=== PATIENT | female | born 1970 | race Caucasian/White ===

== ENCOUNTER 2019-08-23 19:27 | Inpatient (IN) ==
[2019-08-23 20:56] LABS: BASO# 0.03 X1000 (0.0-0.2); BASO% 0.1 % (0.0-0.8); EOS# 0.02 X1000 (0.0-0.7); EOS% 0.1 % (0.0-10.0); HEMOGLOBIN 12.4 g/dL (12.0-16.0); IMM GRAN# 0.07 X1000 (0.0-0.04); IMM GRAN% 0.3 % (0.0-0.5); LYMPH# 1.58 X1000 (1.2-3.4); LYMPH% 7.4 % (20.5-51.1); MCH 29.3 PG (27-31); MCHC 31.8 g/dL (33-37); MCV 92.2 FL (81-99); MONO# 2.26 X1000 (0.11-0.59); MONO% 10.6 % (1.7-9.3); MPV 9.8 FL (7.4-10.4); NEUT# 17.27 X1000 (1.4-6.5); NEUT% 81.5 % (42.2-75.2); PLT 334 X1000 (130-400); RBC 4.23 XMIL (4.2-5.4); RDW 13.3 % (11.5-14.5); WBC 21.23 X1000 (4.8-10.8)
--- NOTE | 2019-08-23 21:06 | PROVIDER DOCUMENTATION ---
HPI-Abdominal Pain/GI Problem - General Chief Complaint: Abdominal Pain Stated Complaint: FEVER/PAIN IN RIGHT SIDE Time Seen by Provider: 08/23/19 20:05 Allergies/Adverse Reactions: Patient Allergies Allergy/AdvReac Type Severity Reaction Status Date / Time No Known Allergies Allergy Verified 08/23/19 20:23 Home Medications: Home Medication List Medication Instructions Recorded Confirmed Last Taken Type NK [No Home Medications] 08/23/19 08/23/19 Unknown History - History of Present Illness-ABD Nature of Presenting Problems: Patient with no know medical problem c/o acute non traumatic RUQ abdominal pain of 2 days duration with associated chills. Reports mild nausea without vomiting. Denies nausea without vomiting, diarrhea, constipation. No CYRUS symptoms Abdominal Pain Onset Location: reports: RUQ Pain Radiation: reports: no radiation Quality of Pain: reports: throbbing Severity in ED: reports: moderate Onset/Duration: reports: 2 days ago Timing: reports: still present Activities at Onset: reports: none Exposure to sick contacts?: Yes Modifying Factors: improves with: nothing Associated Symptoms: reports: fever/chills, nausea Rectal Bleeding: reports: none Rectal Pain: reports: none Bruising or Bleeding Gums?: No Similar Symptoms Previously?: No Recently seen or treated by another doctor?: No Review of Systems - Adult - REVIEW OF SYSTEMS - ADULT Constitutional: reports: no symptoms reported Eyes: reports: no symptoms reported Ears, Nose, Mouth & Throat: reports: no symptoms reported Cardiovascular: reports: no symptoms reported Respiratory: reports: no symptoms reported Gastrointestinal: reports: see HPI Genitourinary: reports: no symptoms reported Musculoskeletal: reports: no symptoms reported Integumentary: reports: no symptoms reported Neurological: reports: no symptoms reported Psychiatric: reports: no symptoms reported Endocrine: reports: no symptoms reported Hematologic/Lymphatic: reports: no symptoms reported Allergic/Immunologic: reports: no symptoms reported Past History - Adult - PAST MEDICAL HISTORY-ADULT Review of Records: reports: Nursing Assessment Review, Medications Reviewed, S ocial history reviewed & non-contributory. Cardiovascular: reports: denies history Respiratory: reports: denies history Gastrointestinal: reports: denies history Obstetrical/Gynecological: reports: endometriosis Genitourinary: reports: denies history Musculoskeletal: reports: denies history Neurological: reports: denies history Psychiatric: reports: denies history Endocrine/Immune: reports: denies history - PRIOR SURGERIES/PROCEDURES Surgical/Procedure History: reports: hysterectomy, tonsillectomy - IMMUNIZATION STATUS Childhood Immunizations: See Nurse Assessment Flu Vaccine: See Nurse Assessment - SOCIAL HISTORY Smoking: denies Substance Use: none/never Alcohol Use Frequency: never Living Situation: friend (fiance) Physical Exam-General - PHYSICAL EXAM-ADULT Initial Vital Signs Reviewed: Yes - CONSTITUTIONAL General Appearance: mild distress - EYES Eyes: PERRL/EOMI - HEAD, EARS, NOSE, MOUTH & THROAT HENMT: normocephalic/atraumatic - NECK Neck: non-tender, full range of motion - RESPIRATORY Respiratory: chest non-tender, lungs clear - CARDIOVASCULAR Cardiovascular: regular rate, rhythm - GASTROINTESTINAL (ABDOMEN) Abdominal Exam: tenderness (right upper quadrant) - MUSCULOSKELETAL Back Exam: normal inspection Extremity: normal range of motion - SKIN Integumentary: normal color - NEUROLOGIC Neurologic: band saw marker II-XII nml as tested - PSYCHIATRIC Psych/Mental Status: oriented x 3 Progress - PLAN OF CARE/RESULTS Progress/Plan/Lab Results: Vital Signs - 8 hr 08/23/19 19:29 08/23/19 19:49 08/23/19 19:50 Temperature 98.9 F 97.9 F Pulse Rate 108 H Respiratory Rate 16 Blood Pressure 117/79 106/70 O2 Sat by Pulse Oximetry 98 97 99 08/23/19 20:00 08/23/19 20:15 Temperature Pulse Rate Respiratory Rate Blood Pressure O2 Sat by Pulse Oximetry 96 98 Laboratory Results - last 24 hr 08/23/19 20:43 WBC 21.23 H RBC 4.23 Hgb 12.4 Hct 39.0 MCV 92.2 MCH 29.3 MCHC 31.8 L RDW Std Deviation 13.3 Plt Count 334 MPV 9.8 Immature Gran % (Auto) 0.3 Neut % (Auto) 81.5 H Lymph % (Auto) 7.4 L [place] % (Auto) 10.6 H Eos % (Auto) 0.1 Baso % (Auto) 0.1 Immature Gran # (Auto) 0.07 H Neut # (Auto) 17.27 H Lymph # (Auto) 1.58 [place] # (Auto) 2.26 H Eos # (Auto) 0.02 Baso # (Auto) 0.03 Orders Category Date Time Status Saline Loc DIRECTED Care 08/23/19 20:22 Active NPO Diet 08/23/19 20:22 Active US ABDOMEN-COMPLETE [US] Stat Exams 08/23/19 20:22 Ordered AMYLASE [CHEM] Stat Lab 08/23/19 20:43 Received CBC WITH ELECTRONIC DIFF [HEME] Stat Lab 08/23/19 20:43 Results COMPREHENSIVE METABOLIC PANEL [CHEM] Stat Lab 08/23/19 20:43 Received LIPASE [CHEM] Stat Lab 08/23/19 20:43 Received Result Diagrams: 08/23/19 20:43 08/23/19 20:43 - ULTRASOUND (By Radiology) 1 US Study: Abdomen ( EXAM: US ABDOMEN-COMPLETE INDICATION: right upper quadrant pain COMPARISON: None. FINDINGS: There is a nonshadowing echogenic focus abutting the gallbladder wall measuring up to 8.3 mm. This probably represents an echogenic bulge sludge. A gallbladder polyp is also possible. No shadowing stones or gallbladder wall thickening is identified. The common bile duct is normal in diameter. Sonographic Sparks's sign was reported to be positive by the finisher wallboard and plasterboard. The liver is grossly unremarkable. Portal venous flow is hepatopetal. The pancreas is largely obscured. The visualized portion is unremarkable. The aorta and IVC are grossly unremarkable. The spleen is unremarkable. There is a 7 mm echogenic focus associated with the right renal cortex that probably represents a small calcification. The kidneys are unremarkable, otherwise. IMPRESSION: 8.3 mm ball of sludge or possibly a gallbladder polyp with no wall thickening or pericholecystic fluid but a reported positive sonographic Sparks sign. Please correlate clinically. Follow- up ultrasound is recommended to assure stability in case this is a polyp. Electronically signed by John Whitman 08/23/2019 9:30 PM) - CONSULTS/PCP/HOSPITALIST Notification #1 *Consult/PCP/Hospitalist*: surgeon Dr King Time Discussed: 09:55 (he wants hospitalist to admit pt and he will follow up with pt tomorrow) #2 Consult: Dr. Burton Time Discussed: 10:20 (Dr Burton will be admitting patient) Consult Disposition: Admit Departure - Departure Date of Disposition Decision: 08/23/19 Time of Disposition Decision: 22:36 DIAGNOSIS: Cholecystitis Disposition: ADMITTED INPATIENT 09 Certified Medical Emergency: Emergent Condition: Fair Referrals and Follow-Ups: None,PCP [Primary Care Provider] - - Critical Care Note This patient required my direct & personal management of CC.: No Attestation - Physician/ LAKESHIA Attestation Patient care was provided by Advanced Practice Provider:: No The physician spent face to face time with patient:: Yes Advanced Practice Provider documentation review:: Supervising physician onsite and consulted in the evaluation and care of this patient. The physician did have a face to face encounter with the patient.
[2019-08-23 21:14] LABS: AGAP 10; ALB/GLOB RATIO 1.1; ALBUMIN 3.9 g/dL (3.5-5.0); ALKALINE PHOSPHATASE 157 U/L (32-104); AMYLASE 23 U/L (20-200); BUN 17 mg/dL (8-22); CALCIUM 8.6 mg/dL (8.8-10.2); CHLORIDE 94 mmol/L (98-107); COSMO 261; CREATININE 0.9 mg/dL (0.5-0.9); ESTIMATED GFR > 60; GLUCOSE 105 mg/dL (70-104); GOT 65 U/L (10-30); GPT 88 U/L (10-36); LIPASE 13 U/L (13-60); POTASSIUM 3.2 mmol/L (3.5-5.1); SODIUM 129 mmol/L (136-145); TCO2 25 mmol/L (25-35); TOTAL BILIRUBIN 1.27 mg/dL (0.20-1.00); TOTAL PROTEIN 7.6 g/dL (6.3-8.3)
[2019-08-23 21:26] LABS: LYMPHS 10 % (21-51); MONO 7 % (1-9); SEGS 83 % (42-75)
--- NOTE | 2019-08-23 21:32 | Diag Imaging Result Doc PS360 ---
EXAM: US ABDOMEN-COMPLETE INDICATION: right upper quadrant pain COMPARISON: None. FINDINGS: There is a nonshadowing echogenic focus abutting the gallbladder wall measuring up to 8.3 mm. This probably represents an echogenic bulge sludge. A gallbladder polyp is also possible. No shadowing stones or gallbladder wall thickening is identified. The common bile duct is normal in diameter. Sonographic Sparks's sign was reported to be positive by the lathe sander. The liver is grossly unremarkable. Portal venous flow is hepatopetal. The pancreas is largely obscured. The visualized portion is unremarkable. The aorta and IVC are grossly unremarkable. The spleen is unremarkable. There is a 7 mm echogenic focus associated with the right renal cortex that probably represents a small calcification. The kidneys are unremarkable, otherwise. IMPRESSION: 8.3 mm ball of sludge or possibly a gallbladder polyp with no wall thickening or pericholecystic fluid but a reported positive sonographic Sparks sign. Please correlate clinically. Follow-up ultrasound is recommended to assure stability in case this is a polyp. Electronically signed by John Whitman 08/23/2019 9:30 PM
[2019-08-23] MEDS ORDERED: NS 1,000 ML IV ONE (21:44)
[2019-08-23] MEDS ORDERED: ROCEPHIN 1 GM in NS 50 ML IV ONE (21:44)
[2019-08-23] MEDS ORDERED: ZOFRAN IV ONE (21:49)
[2019-08-23] MEDS ORDERED: MORPHINE IV ONE (21:49)
[2019-08-23] MEDS ORDERED: TYLENOL PO PRN (23:46)
[2019-08-24] MEDS ORDERED: ZOFRAN IV PRN (00:24)
[2019-08-24] MEDS ORDERED: KLOR-CON PO ONE (00:24)
[2019-08-24] MEDS ORDERED: MORPHINE IV PRN (00:24)
[2019-08-24] MEDS: NS 1,000 ML IV SCH ×5 (00:44→23:19)
[2019-08-24] MEDS: ZOSYN 3.375 GM in NS 50 ML IV SCH ×4 (00:45→19:59)
[2019-08-24 02:02] LABS: URINE SOURCE CLEAN CATCH
[2019-08-24 02:05] LABS: BILIRUBIN URINE NEGATIVE (NEGATIVE); BLOOD URINE MODERATE (NEGATIVE); COLOR YELLOW; GLUCOSE URINE NEGATIVE (NEGATIVE); KETONE URINE NEGATIVE (NEGATIVE); LEUKOCYTES URINE MODERATE (NEGATIVE); NITRITE URINE NEGATIVE (NEGATIVE); PROTEIN URINE 100 mg/dL (NEGATIVE); TURBIDITY URINE CLEAR (CLEAR); UROBILINOGEN URINE 8 mg/dL (NORMAL)
[2019-08-24 02:06] LABS: UR EPITHELIAL CELLS <10 /HPF (<10); URINE BACTERIA 1+ /HPF; URINE RBC 20-40 /HPF (<10); URINE WBC TNTC /HPF (<10)
[2019-08-24 02:15] LABS: SP GRAVITY URINE 1.015
--- NOTE | 2019-08-24 04:15 | HISTORY AND PHYSICAL ---
PRIMARY CARE PHYSICIAN: None. CHIEF COMPLAINT: Abdominal pain and right flank pain x3 days. HISTORY OF PRESENTING ILLNESS: A 49-year-old female with a history of hypothyroidism that presented to the emergency department with 3 days history of having abdominal pain mostly in her right upper quadrant and right flank region. She states that she was having fevers and chills, and not feeling well and subsequently had come to emergency department. In the ED she was evaluated. She had a CT scan done which did show bilateral pyelonephritis more pronounced on the right. The patient also had an abdominal ultrasound which did show gallbladder sludge. Due to her presenting symptoms, she will require admission for further management. At the time of my examination, patient denied any headache, chest pain, shortness of breath, hemoptysis or any weight changes, but complained of abdominal pain and fever. PAST MEDICAL HISTORY: Includes hypothyroidism. PAST SURGICAL HISTORY: Hysterectomy, tonsillectomy. ALLERGIES: No known drug allergies. CURRENT MEDICATIONS: None. SOCIAL HISTORY: No history of smoking, alcohol or illicit drug use. FAMILY HISTORY: No history of coronary artery disease. REVIEW OF SYSTEMS: Fourteen point review of system as listed in HPI. Other systems negative. PHYSICAL EXAMINATION: GENERAL: Cooperative, friendly female. She is resting more comfortably now. VITAL SIGNS: Temperature 98.9 degrees, pulse 108, respirations 16, blood pressure 117/79. HEENT: Atraumatic, normocephalic. Extraocular movements intact. PERRLA. NECK: No masses. CHEST: Clear to auscultation. CARDIOVASCULAR: Regular rate and rhythm. ABDOMEN: There is some right upper quadrant tenderness. BACK: There is flank tenderness. GENITOURINARY: No bladder distention. SKIN: Warm. NEUROLOGIC: Nonfocal. LABORATORIES AND STUDIES: WBC is 21.23, hemoglobin 12.4, hematocrit 39.0, platelets 334,000. Sodium 129, potassium 3.2, chloride 94, CO2 is 25, BUN is 17, creatinine 0.9, glucose 105. Abdominal ultrasound shows 8.3 mm ball of sludge or possibly a gallbladder polyp with no wall thickening or pericholecystic fluid. CT scan shows bilateral pyelonephritis. ASSESSMENT: A 49-year-old female with a history of hypothyroidism had presented to the emergency department with 3 days history of having right flank/abdominal pain. She was also complaining of fever. She was evaluated in the emergency department. She had imaging done which did show bilateral pyelonephritis more pronounced on the right. Subsequently, she will require admission for further management. 1. Bilateral pyelonephritis, more pronounced on the right. 2. Gallbladder sludge. 3. Hypothyroidism. PLAN: 1. We will admit patient to medical floor with telemetry. 2. We will continue with IV fluids, antiemetics, adequate pain control. 3. We will check blood cultures. Start patient on IV antibiotics. 4. We will put patient on DVT prophylaxis with SCD. 5. We will continue to follow, and reassess and make further recommendation based on patient's clinical course. cc: Gerson Burton MD
--- NOTE | 2019-08-24 06:34 | Diag Imaging Result Doc PS360 ---
CT ABD/PELVIS W/IV CONT ONLY - 08/23/2019 INDICATION: abdominal pain COMPARISON: Abdomen ultrasound earlier 08/23/2019 FINDINGS: The lung bases are clear and the heart size is normal. There is patchy hypoenhancement of both kidneys compatible with pyelonephritis. No radiodense renal stones. No hydronephrosis. There is a tiny stone in the gallbladder. No gallbladder distention or inflammation. Otherwise all abdominal organs are normal. No bowel obstruction or inflammation. Uterus is absent. Urinary bladder and rectum are normal. Bones are intact and normally mineralized. IMPRESSION: 1. Bilateral pyelonephritis. 2. Tiny gallstone in the gallbladder. This exam was performed using automated exposure control, adjustment of mA or kV according to patient size, and/or use of iterative reconstruction technique Electronically signed by Galen Rosa 08/24/2019 6:31 AM
[2019-08-24 07:58] LABS: BASO# 0.02 X1000 (0.0-0.2); BASO% 0.1 % (0.0-0.8); HEMATOCRIT 36.6 % (37.0-47.0); HEMOGLOBIN 11.5 g/dL (12.0-16.0); IMM GRAN# 0.19 X1000 (0.0-0.04); IMM GRAN% 0.6 % (0.0-0.5); LYMPH# 1.25 X1000 (1.2-3.4); LYMPH% 3.7 % (20.5-51.1); MCH 29.7 PG (27-31); MCHC 31.4 g/dL (33-37); MCV 94.6 FL (81-99); MONO# 3.21 X1000 (0.11-0.59); MONO% 9.4 % (1.7-9.3); MPV 10.1 FL (7.4-10.4); NEUT# 29.56 X1000 (1.4-6.5); NEUT% 86.2 % (42.2-75.2); PLT 273 X1000 (130-400); RBC 3.87 XMIL (4.2-5.4); RDW 13.3 % (11.5-14.5); WBC 34.23 X1000 (4.8-10.8)
[2019-08-24 08:08] LABS: AGAP 10; BUN 12 mg/dL (8-22); CALCIUM 8.6 mg/dL (8.8-10.2); CHLORIDE 102 mmol/L (98-107); COSMO 268; CREATININE 0.8 mg/dL (0.5-0.9); ESTIMATED GFR > 60; GLUCOSE 141 mg/dL (70-104); SODIUM 133 mmol/L (136-145); TCO2 21 mmol/L (25-35)
[2019-08-24 08:13] LABS: BANDS 2 % (0-1); LYMPHS 4 % (21-51); MONO 8 % (1-9); SEGS 86 % (42-75)
[2019-08-24] MEDS: TYLENOL PO PRN ×2 (08:21→20:00)
[2019-08-24] MEDS: MIRALAX PO SCH ×2 (09:32→20:00)
[2019-08-24] MEDS ORDERED: SYNTHROID PO ONE (13:39)
[2019-08-24] MEDS ORDERED: VANCOMYCIN IV PER PHARMACY MISC SCH (14:15)
[2019-08-24] MEDS ORDERED: NS 1,000 ML IV ONE (14:23)
[2019-08-24] MEDS ORDERED: VANCOMYCIN 2 GM in NS 500 ML IV ONE (15:00)
--- NOTE | 2019-08-24 15:40 | EKG Report ---
Test Performed on : 08/24/2019 2:08:55 PM Test Reason : Hypotension Blood Pressure : / mmHG Vent. Rate : 078 BPM Atrial Rate : 078 BPM P-R Int : 148 ms QRS Dur : 084 ms QT Int : 376 ms P-R-T Axes : 067 038 056 degrees QTc Int : 428 ms Normal sinus rhythm. Nonspecific T wave abnormality Abnormal ECG No previous ECGs available Confirmed by Ashley CALDERON, Tobi Ordonez ([id number]) on 08/25/2019 11:07:24 PM
[2019-08-24 15:50] LABS: INR 1.38; PROTIME 17.2 Seconds (11.0-16.0)
--- NOTE | 2019-08-24 15:59 | PROGRESS NOTE ---
DATE: 08/24/2019 INTERVAL HISTORY: Ms. Diaz was admitted for suspected sepsis due to bilateral predominantly right-sided pyelonephritis. S she has not had her blood pressure and lactate and she is hypotensive for which I ordered stat blood tests, EKG, and stat boluses, stat intravenous bolus. Ms. Diaz states previously she did have a history of nephrolithiasis, which did not require surgical intervention. She denies any burning, pain, or burning micturition or pyuria. She denies any increased frequency of urination. She denies known history of gallbladder disease, though her ultrasound did detect suspected gallstones without any edema. SUBJECTIVE: She states she is feeling the same as she was yesterday. We discussed about adding increasing antibiotic coverage. We discussed about getting stat blood pressure, stat vitals, and stat labs and possibly transferring her to PVC or ICU based on her course after that. VITAL SIGNS: Currently, temperature of 98 degrees, pulse 78, respirations 16. Blood pressure is 80/50, repeat blood pressure was 90/60. She is saturating 100% on room air. PHYSICAL EXAMINATION: General: Not in any acute distress. HEENT: Oral cavity is dry. Lungs: Air entry bilaterally equal. No wheeze, rhonchi, or crackles. Cardiovascular: S1, S2 normal. No murmur or gallop. Abdomen: Soft. There is a significant tenderness with positive Sparks signs on right upper quadrant. She also has significant tenderness of the right flank region. There are active bowel sounds. Urine catheter has not been placed yet. LABORATORY DATA: In the morning time, her CBC increased to 34,000, hemoglobin of 11.5, platelet of 273,000. Her hyponatremia and hypokalemia have resolved. She does have abnormal kidney function. She did have transaminitis. On urinalysis, she had pyuria and hematuria. Microbiology, urine culture is pending. Blood culture has not been collected. ASSESSMENT AND PLAN: 1. Sepsis and possibly septic shock due to right-sided pyelonephritis, though ultrasound of gallbladder did not have pericholecystic fluid. Acute cholecystitis disease is not totally ruled out yet. I will give her intravenous normal saline bolus. Continue her on intravenous fluids. I will add intravenous vancomycin to her current regimen of intravenous Zosyn. Get stat blood cultures, lactate, and insert urine catheter for close input and output monitoring. Based on next set of vitals, my plan is to transfer her to either PVC or ICU. I will give her intravenous morphine as needed for pain, and I will consult General Surgery team for evaluation of her gallbladder. I will also initiate workup for coagulopathy just in case if she needs urgent surgical intervention. Plan of care extensively discussed with the patient and her at bedside. All of their questions have been satisfactorily answered. 2. Cholecystolithiasis without cholecystitis: I will keep surgery team on board. cc: Elier Kearns MD MTDD
[2019-08-24 16:03] LABS: BASO# 0.02 X1000 (0.0-0.2); BASO% 0.1 % (0.0-0.8); EOS# 0.04 X1000 (0.0-0.7); EOS% 0.2 % (0.0-10.0); HEMATOCRIT 32.9 % (37.0-47.0); HEMOGLOBIN 10.2 g/dL (12.0-16.0); IMM GRAN# 0.06 X1000 (0.0-0.04); IMM GRAN% 0.2 % (0.0-0.5); MCH 29.5 PG (27-31); MCV 95.1 FL (81-99); MONO# 1.72 X1000 (0.11-0.59); MONO% 6.8 % (1.7-9.3); MPV 10.2 FL (7.4-10.4); NEUT# 21.81 X1000 (1.4-6.5); NEUT% 86.7 % (42.2-75.2); PLT 262 X1000 (130-400); RBC 3.46 XMIL (4.2-5.4); RDW 13.4 % (11.5-14.5); WBC 25.15 X1000 (4.8-10.8)
[2019-08-24 16:11] LABS: AGAP 13; ALB/GLOB RATIO 0.8; ALBUMIN 2.9 g/dL (3.5-5.0); ALKALINE PHOSPHATASE 147 U/L (32-104); BUN 13 mg/dL (8-22); CALCIUM 8.5 mg/dL (8.8-10.2); CHLORIDE 99 mmol/L (98-107); COSMO 275; CREATININE 0.9 mg/dL (0.5-0.9); ESTIMATED GFR > 60; GLUCOSE 143 mg/dL (70-104); GOT 35 U/L (10-30); GPT 55 U/L (10-36); POTASSIUM 3.9 mmol/L (3.5-5.1); SODIUM 136 mmol/L (136-145); TCO2 24 mmol/L (25-35); TOTAL BILIRUBIN 1.18 mg/dL (0.20-1.00); TOTAL PROTEIN 6.4 g/dL (6.3-8.3)
[2019-08-24 16:19] LABS: BANDS 1 % (0-1); LYMPHS 4 % (21-51); MONO 1 % (1-9); SEGS 94 % (42-75)
[2019-08-24] MEDS: OXY IR PO PRN (17:25)
--- NOTE | 2019-08-24 19:41 | GENERAL SURGERY CONSULTATION ---
DATE: 08/24/2019 REASON FOR CONSULTATION: Gallstones. CHIEF COMPLAINT: Right flank pain for 3 days. HISTORY OF PRESENT ILLNESS: This is a 49-year-old female, who has a history of hypothyroidism. She came to the emergency department after right flank pain for several days. It is located in the right flank, radiating into the right upper quadrant. She says that approximately 1 to 2 weeks ago she had some dysuria type symptoms, thought she had a UTI, but this resolved without any further intervention. She does have a history of nephrolithiasis. Imaging workup showed that she had pyelonephritis after she was found to have leukocytosis and was febrile in the emergency department. She also had incidentally noted gallstones. No jaundice. She has had some nausea this admission, but she has had no episodic symptoms with eating prior to this. She had a CT scan that showed bilateral pyelonephritis, and she also had both CT and ultrasound that showed gallstones versus sludge versus polyp, but no pericholecystic fluid. MEDICAL HISTORY: Hypothyroidism. SURGICAL HISTORY: She has had a laparoscopic hysterectomy, tonsillectomy. MEDICATIONS: None. SOCIAL HISTORY: No tobacco, alcohol, drugs. FAMILY HISTORY: Reviewed and noncontributory. REVIEW OF SYSTEMS: A 10 point review of systems was negative other than what is mentioned in HPI. PHYSICAL EXAMINATION: She is afebrile currently, but was febrile in the emergency department up to 101.7, pulse 85, blood pressure 110/61, oxygen saturation 100%.General: She is alert, in no acute distress. HEENT: There is no scleral icterus. Neck: No cervical mass. Cardiovascular: Normal rate. Pulmonary: No increased work of breathing. Abdomen: She is tender over her right flank, worse in the costovertebral angle, but no peritonitis. Psychiatric: Appropriate affect. Neurologic: No gross deficits. Peripheral vascular: No lower extremity edema. Lymphatic: No cervical or axillary adenopathy. DIAGNOSTIC STUDIES: White count is up to 25 and it was 21 on admission, hematocrit 32, platelets 262,000. INR is 1.38. Creatinine 0.9, bilirubin is 1.18. AST, ALT, and alkaline phosphatase are mildly elevated. Her lactate was 2.8. Lipase was normal. I reviewed her imaging. Urinalysis also showed moderate leukocytes and blood in the urine. ASSESSMENT AND PLAN: This is a 49-year-old female with pyelonephritis. She also has incidentally noted gallstones, some mild elevation in LFTs, possibly related to her systemic illness. Her history is not consistent with biliary etiology. I would recommend treating of her pyelonephritis and observation over the next couple days, as I suspect that clinically this is more of a pyelonephritis-type picture. Ding catheter is being placed currently. We will follow along and monitor her gallbladder going forward. cc: Neal Galvan MD
[2019-08-25] MEDS: ZOSYN 3.375 GM in NS 50 ML IV SCH ×4 (03:12→20:03)
[2019-08-25 06:37] LABS: BASO# 0.03 X1000 (0.0-0.2); BASO% 0.1 % (0.0-0.8); EOS# 0.15 X1000 (0.0-0.7); EOS% 0.7 % (0.0-10.0); HEMATOCRIT 33.9 % (37.0-47.0); HEMOGLOBIN 10.5 g/dL (12.0-16.0); IMM GRAN# 0.07 X1000 (0.0-0.04); IMM GRAN% 0.3 % (0.0-0.5); LYMPH# 2.42 X1000 (1.2-3.4); LYMPH% 11.4 % (20.5-51.1); MCH 29.5 PG (27-31); MCV 95.2 FL (81-99); MONO# 2.32 X1000 (0.11-0.59); MONO% 10.9 % (1.7-9.3); MPV 10.4 FL (7.4-10.4); NEUT# 16.21 X1000 (1.4-6.5); NEUT% 76.6 % (42.2-75.2); PLT 255 X1000 (130-400); RBC 3.56 XMIL (4.2-5.4); RDW 13.5 % (11.5-14.5)
[2019-08-25 06:42] LABS: AGAP 11; ALB/GLOB RATIO 0.7; ALBUMIN 2.5 g/dL (3.5-5.0); ALKALINE PHOSPHATASE 203 U/L (32-104); BUN 7 mg/dL (8-22); CALCIUM 8.1 mg/dL (8.8-10.2); CHLORIDE 105 mmol/L (98-107); COSMO 275; CREATININE 0.6 mg/dL (0.5-0.9); ESTIMATED GFR > 60; GLUCOSE 148 mg/dL (70-104); GOT 40 U/L (10-30); GPT 54 U/L (10-36); POTASSIUM 3.5 mmol/L (3.5-5.1); SODIUM 137 mmol/L (136-145); TCO2 21 mmol/L (25-35); TOTAL BILIRUBIN 0.65 mg/dL (0.20-1.00)
[2019-08-25] MEDS ORDERED: SYNTHROID PO SCH (07:00)
[2019-08-25 07:05] LABS: LYMPHS 12 % (21-51); MONO 10 % (1-9); SEGS 78 % (42-75)
[2019-08-25] MEDS: NS 1,000 ML IV SCH ×2 (07:49→17:19)
[2019-08-25] MEDS: MIRALAX PO SCH ×2 (08:14→20:03)
[2019-08-25] MEDS: OXY IR PO PRN ×2 (08:14→18:03)
[2019-08-25] MEDS ORDERED: ABREVA CREAM TOP ONE (09:46)
[2019-08-25] MEDS: VANCOMYCIN 1,500 MG in NS 250 ML IV SCH (10:25)
--- NOTE | 2019-08-25 15:14 | GENERAL SURGERY PROGRESS NOTE ---
DATE: 08/25/2019 SUBJECTIVE: She fells some better. Her pain is alleviating, mostly located in the right flank and right back. No fevers. OBJECTIVE: Pulse 76, blood pressure 103/69. General: She is alert. Cardiovascular: Normal rate. Abdomen is soft, nontender. She does have tenderness in the right flank and costovertebral angle white counts. LABORATORY DATA: White count down to 12, hematocrit 33, creatinine 0.6. Bilirubin is normal. AST, ALT, and alkaline phosphatase about the same. Urine culture is pending. ASSESSMENT AND PLAN: This is a 49-year-old female with pyelonephritis. She also has gallstones. We will observe her going forward and maybe plan for elective cholecystectomy after she recovers from her pyelonephritis. I do not suspect that this is the source of infection currently. cc: Nael Galvan MD
--- NOTE | 2019-08-25 20:21 | PROGRESS NOTE ---
DATE: 08/25/2019 SUBJECTIVE: The patient is resting comfortably in bed. She states that she feels a lot better today. She does complain of right upper quadrant pain. OBJECTIVE: Vital signs: T-max 99.9 degrees, blood pressure 121/76, heart rate 84, respirations 18, O2 saturation is 99% on room air. Intake 725, output 1.2 L.General: This is an elderly female lying in bed in no acute distress. Heart: S1, S2 normal. Regular rate and rhythm. Lungs: Clear to auscultation bilaterally. Abdomen: Positive bowel sounds. Soft. Tenderness in the right upper quadrant. Extremities: No edema, no cyanosis. Neurologic: The patient is alert and oriented x4. LABORATORY DATA: White blood cell count 21, hemoglobin 10, hematocrit 33, platelets 255,000. Sodium 137, potassium 3.5, BUN 7, creatinine 0.6, glucose 148. AST 40, ALT 54, alkaline phosphatase 203. TSH 13.7. ASSESSMENT AND PLAN: 1. Sepsis secondary to bilateral pyelonephritis. The patient is currently on broad-spectrum antibiotic therapy. So far, the blood and urine cultures are pending. Continue with intravenous fluids. The patient appears to be tolerating her diet without any difficulty. 2. Cholelithiasis. We will continue to monitor the patient's liver function studies. General Surgery is following. 3. Hypothyroidism. We will start the patient on Synthroid. 4. Constipation. Continue with scheduled laxative therapy. 5. Deep vein thrombosis prophylaxis. We will start the patient on Lovenox. cc: Yuni Ledesma MD
[2019-08-25] MEDS: TYLENOL PO PRN (21:22)
[2019-08-25] MEDS: LOVENOX SUBQ SCH (21:24)
[2019-08-26] MEDS: OXY IR PO PRN ×5 (00:30→21:46)
[2019-08-26] MEDS: NS 1,000 ML IV SCH ×3 (01:25→21:46)
[2019-08-26] MEDS: ZOSYN 3.375 GM in NS 50 ML IV SCH ×2 (02:31→08:39)
[2019-08-26] MEDS: VANCOMYCIN 1,500 MG in NS 250 ML IV SCH (03:48)
[2019-08-26] MEDS: SYNTHROID PO SCH (06:10)
[2019-08-26 06:16] LABS: BASO# 0.03 X1000 (0.0-0.2); BASO% 0.2 % (0.0-0.8); EOS# 0.21 X1000 (0.0-0.7); EOS% 1.7 % (0.0-10.0); HEMATOCRIT 32.4 % (37.0-47.0); HEMOGLOBIN 9.9 g/dL (12.0-16.0); IMM GRAN# 0.04 X1000 (0.0-0.04); IMM GRAN% 0.3 % (0.0-0.5); LYMPH# 2.98 X1000 (1.2-3.4); MCH 29.3 PG (27-31); MCHC 30.6 g/dL (33-37); MCV 95.9 FL (81-99); MONO# 1.16 X1000 (0.11-0.59); MONO% 9.3 % (1.7-9.3); MPV 10.3 FL (7.4-10.4); NEUT# 7.99 X1000 (1.4-6.5); NEUT% 64.5 % (42.2-75.2); PLT 290 X1000 (130-400); RBC 3.38 XMIL (4.2-5.4); RDW 13.4 % (11.5-14.5); WBC 12.41 X1000 (4.8-10.8)
[2019-08-26 06:34] LABS: AGAP 8; ALB/GLOB RATIO 0.7; ALBUMIN 2.5 g/dL (3.5-5.0); ALKALINE PHOSPHATASE 154 U/L (32-104); BUN 4 mg/dL (8-22); CALCIUM 8.6 mg/dL (8.8-10.2); CHLORIDE 105 mmol/L (98-107); COSMO 268; CREATININE 0.6 mg/dL (0.5-0.9); ESTIMATED GFR > 60; GLUCOSE 92 mg/dL (70-104); GOT 35 U/L (10-30); GPT 58 U/L (10-36); POTASSIUM 3.6 mmol/L (3.5-5.1); SODIUM 136 mmol/L (136-145); TCO2 23 mmol/L (25-35); TOTAL BILIRUBIN 0.37 mg/dL (0.20-1.00); TOTAL PROTEIN 6.1 g/dL (6.3-8.3)
[2019-08-26] MEDS: MIRALAX PO SCH ×2 (08:39→21:46)
--- NOTE | 2019-08-26 11:39 | Diag Imaging Result Doc PS360 ---
EXAM: CT HEAD W/O CONTRAST 08/26/2019 HISTORY: headache/ear ache TECHNIQUE: This exam was performed using automated exposure control, adjustment of mA or kV according to patient size, and/or use of iterative reconstruction technique. COMMENT: There are lucencies in the external capsule regions bilaterally. There is no evidence of mass effect, bleed, or abnormal extra-axial fluid collection. The visualized paranasal sinuses are clear. The middle ear cavities and mastoid air cells are clear. The calvarium is intact. There is some debris in the external auditory canals particularly on the right. IMPRESSION: No evidence of acute intracranial disease. Chronic microvascular changes. Electronically signed by Woody Ross 08/26/2019 11:36 AM
--- NOTE | 2019-08-26 11:40 | Diag Imaging Result Doc PS360 ---
EXAM: US SOFT TISSUE HEAD/NECK INDICATION: assess thyroid TECHNIQUE: COMPARISON: None. FINDINGS: The right thyroid lobe measures 4.9 x 1.7 x 2.3 cm. The left thyroid lobe measures 5.0 x 1.9 x 1.8 cm. The thyroid isthmus measures 0.9 cm in thickness. The thyroid echotexture is extremely heterogeneous throughout. In the left thyroid lobe, there is a heterogeneous nodule that is largely solid and is isoechoic to slightly hyperechoic as compared to the surrounding parenchyma. It measures up to 2.4 cm in the greatest dimension. There is a similar echotexture nodule in the left thyroid lobe that measures up to 0.6 cm in the greatest dimension. Both these nodules are well-circumscribed and are wider than they are tall. There are no associated microcalcifications. No other cystic or solid nodules are appreciated. IMPRESSION: Extremely heterogeneous thyroid with a dominant nodule in the left thyroid lobe that can be classified as a TI-RADS Category 3 nodule. Continued ultrasound surveillance is recommended. Electronically signed by John Whitman 08/26/2019 11:37 AM
--- NOTE | 2019-08-26 11:59 | INFECTIOUS DISEASE CONSULT REP ---
DATE: 08/26/2019 CONCLUSION: The patient is admitted to the hospital with bilateral pyelonephritis. RECOMMENDATIONS: I have discontinued vancomycin and Zosyn, and put the patient on cefepime. DISCUSSION: The patient, approximately 5 days ago, started having fever and pain in the right upper part of the abdomen and also on the right flank area on the back. The patient noticed that the urine had an odor but it did not burn when she passed her urine. The patient has been admitted in the hospital. Her CBC at one time showed a white count of 25,000. Now, the white blood cell count is 12,410, the hemoglobin is 9.9, and platelet count is 290,000. The patient's creatinine is 0.6. GFR is greater than 60. Alkaline phosphatase was 154. Urinalysis showed white cells and bacteria but both blood and urine cultures were negative. The patient had a CT scan of the abdomen and pelvis that showed bilateral pyelonephritis and also a gallstone on ultrasound. Sludge was found in the gallbladder. The patient was started on vancomycin and Zosyn. 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 She has had a D and C, and laparoscopic surgeries for endometriosis. REVIEW OF SYSTEMS: Eyes and Ears: She does not have any problems seeing or hearing. Neck: No stiffness. Respiratory: No cough or shortness of breath. Cardiac: No chest pain or palpitations. GI: No nausea, vomiting, or diarrhea. : See present illness. Bones, Joints, and Muscles: No swollen joints or muscle aching. Neurologic: No seizures. No loss of motor or sensory function. PREVIOUS HOSPITALIZATIONS AND OPERATIONS: The patient has had labor and delivery, a hysterectomy, a tonsillectomy, a rhinoplasty, and two laparoscopic surgeries for endometriosis. The patient has also had a D and C, and labor and delivery. MEDICAL DISEASES: Positive for hypothyroidism. INFECTIOUS DISEASE HISTORY: Positive for a urinary tract infection and pneumonia. FAMILY HISTORY: Positive for diabetes mellitus, hypertension, myocardial infarction, stroke, and cancer. SOCIAL HISTORY: [facility] She is . She does not have any pets. She does not smoke cigarettes, drink alcoholic beverages, or use illicit drugs. She does not have a job. MEDICATIONS: She is on no medications at home. PHYSICAL EXAMINATION: Vital Signs: Temperature is 98.4 degrees, pulse 72, respirations 19, blood pressure 123/80. Patient weighs 143 pounds. She is 5 feet 4 inches tall. General: The patient looked like she was somewhat ill. She was in no acute distress, however. Head, Eyes, Ears, Nose, and Throat: She can hear my spoken words and see near objects. I did not see any white patches in her mouth. Neck: No meningismus. Lungs: Clear to auscultation. Cardiovascular: Heart rate is regular. Abdomen and Flanks: The patient had tenderness in the right upper quadrant and the right flank area. She also had it in the left upper abdomen and left flank area, but not as much as she did on the right side. Neurologic: The patient is alert. She ambulates without difficulty. There is no tremor. Her sensation is intact to touch. Her memory was intact as regarding her medical history. Integument: No rash. Thank you for the consult. cc: Dave Avendano MD
[2019-08-26] MEDS: MAXIPIME 2 GM in NS 100 ML IV SCH (12:53)
[2019-08-26] MEDS ORDERED: MIRALAX PO SCH (21:00)
[2019-08-26] MEDS: COLACE PO SCH (21:46)
[2019-08-26] MEDS: LOVENOX SUBQ SCH (21:46)
[2019-08-27] MEDS: MAXIPIME 2 GM in NS 100 ML IV SCH ×2 (01:11→13:15)
--- NOTE | 2019-08-27 04:00 | PROGRESS NOTE ---
DATE: 08/26/2019 SUBJECTIVE: The patient is resting comfortably in bed. She states that she feels a lot better today. She does complain of an earache on the left side. OBJECTIVE: Vital Signs: Temperature 98.8 degrees, blood pressure 122/75, heart rate 78, respirations 19, O2 saturation 100% on room air. General: This is an elderly female lying in bed in no acute distress. Heart: S1, S2 normal. Regular rate and rhythm. Lungs: Equal air entry bilaterally. No wheezing. No rales. No rhonchi. Abdomen: Positive bowel sounds. Soft, nontender, nondistended. Extremities: No edema, no cyanosis. Neurologic: The patient is alert and oriented x4. LABS: White blood cell count 12, hemoglobin 9.9, hematocrit 32, platelets 290,000. Sodium 136, potassium 3.6, BUN 4, creatinine 0.6, glucose 92. AST 35, ALT 58, alkaline phosphatase 154. Head and neck ultrasound reveals a heterogeneous thyroid with a dominant nodule in the left thyroid lobe. It measures 2.4 cm. ASSESSMENT AND PLAN: 1. Sepsis secondary to bilateral pyelonephritis. Improved. Continue with intravenous antibiotic therapy and fluids. 2. Bilateral pyelonephritis. Continue with intravenous antibiotic treatment as per Dr. Avendano. 3. Thyroid nodule. Will discuss with the patient about a thyroid biopsy. 4. Cholelithiasis. Continue to monitor the liver function tests. General Surgery is following. 5. Leukocytosis. Slowly improving. Continue with intravenous fluids. 6. Hypothyroidism. Continue on Synthroid. 7. Constipation. Continue with laxative therapy. 8. Deep vein thrombosis prophylaxis. Continue on Lovenox. 9. Will consult Physical Therapy. cc: Yuni Ledesma MD [facility]
[2019-08-27] MEDS: OXY IR PO PRN ×3 (06:29→18:22)
[2019-08-27] MEDS: NS 1,000 ML IV SCH ×2 (06:29→13:15)
[2019-08-27] MEDS: SYNTHROID PO SCH (06:29)
[2019-08-27 07:28] LABS: BASO# 0.07 X1000 (0.0-0.2); BASO% 0.6 % (0.0-0.8); EOS# 0.18 X1000 (0.0-0.7); EOS% 1.5 % (0.0-10.0); HEMATOCRIT 32.7 % (37.0-47.0); HEMOGLOBIN 10.1 g/dL (12.0-16.0); IMM GRAN# 0.06 X1000 (0.0-0.04); IMM GRAN% 0.5 % (0.0-0.5); LYMPH% 21.3 % (20.5-51.1); MCH 29.6 PG (27-31); MCHC 30.9 g/dL (33-37); MCV 95.9 FL (81-99); MONO# 1.08 X1000 (0.11-0.59); MONO% 9.2 % (1.7-9.3); MPV 9.8 FL (7.4-10.4); NEUT# 7.82 X1000 (1.4-6.5); NEUT% 66.9 % (42.2-75.2); PLT 367 X1000 (130-400); RBC 3.41 XMIL (4.2-5.4); RDW 13.6 % (11.5-14.5); WBC 11.71 X1000 (4.8-10.8)
[2019-08-27 07:52] LABS: AGAP 10; ALBUMIN 2.6 g/dL (3.5-5.0); BUN 4 mg/dL (8-22); CALCIUM 8.1 mg/dL (8.8-10.2); CHLORIDE 106 mmol/L (98-107); COSMO 277; CREATININE 0.7 mg/dL (0.5-0.9); ESTIMATED GFR > 60; GLUCOSE 86 mg/dL (70-104); PHOSPHORUS 2.9 mg/dL (2.7-4.5); POTASSIUM 3.7 mmol/L (3.5-5.1); SODIUM 141 mmol/L (136-145); TCO2 25 mmol/L (25-35)
[2019-08-27 07:59] LABS: BASO 2 % (0-1); EOS 4 % (1-10); LYMPHS 37 % (21-51); MONO 2 % (1-9); SEGS 55 % (42-75)
[2019-08-27] MEDS: MIRALAX PO SCH ×2 (08:35→21:42)
[2019-08-27] MEDS: COLACE PO SCH ×2 (08:35→21:42)
[2019-08-27] MEDS: TYLENOL PO PRN (14:06)
--- NOTE | 2019-08-27 15:51 | PROGRESS NOTE ---
DATE: 08/27/2019 SUBJECTIVE: The patient is resting comfortably in bed. She states that she feels a whole lot better today. No acute events overnight. OBJECTIVE: Vital Signs: Temperature 99 degrees, blood pressure 128/82, heart rate 76, respirations 19, O2 saturation 99% on room air. General: This is an elderly female lying in bed in no acute distress. Heart: S1, S2 normal. Regular rate and rhythm. Lungs: Clear to auscultation bilaterally. Abdomen: Positive bowel sounds. Soft, nontender, nondistended. Extremities: No edema, no cyanosis. Neurologic: The patient is alert and oriented x3. LABS: White blood cell count 11, hemoglobin 10, hematocrit 32, platelets 367. BUN 4, creatinine 0.7, glucose 86, albumin 2.6. ASSESSMENT AND PLAN: 1. Sepsis secondary to bilateral pyelonephritis. Continue on IV antibiotic therapy. 2. Bilateral pyelonephritis. The patient is currently on cefepime. This will be switched to Levaquin upon discharge. 3. Thyroid nodule. The patient is scheduled to undergo a thyroid fine-needle aspiration tomorrow. 4. Hypothyroidism. Continue on Synthroid. 5. Constipation. Improved. Continue with laxative therapy. 6. Cholelithiasis. The general surgeon is following for possible surgical intervention as outpatient once the infection has cleared. 7. Deep vein thrombosis prophylaxis. We will hold the Lovenox this evening since the patient is scheduled to undergo biopsy tomorrow. cc: Yuni Ledesma MD [facility]
[2019-08-28] MEDS: MAXIPIME 2 GM in NS 100 ML IV SCH ×2 (00:30→12:35)
[2019-08-28] MEDS: SYNTHROID PO SCH ×2 (06:02→09:41)
[2019-08-28 07:08] LABS: BASO# 0.07 X1000 (0.0-0.2); BASO% 0.5 % (0.0-0.8); EOS# 0.33 X1000 (0.0-0.7); EOS% 2.5 % (0.0-10.0); HEMATOCRIT 33.7 % (37.0-47.0); HEMOGLOBIN 10.4 g/dL (12.0-16.0); IMM GRAN# 0.08 X1000 (0.0-0.04); IMM GRAN% 0.6 % (0.0-0.5); LYMPH# 2.44 X1000 (1.2-3.4); LYMPH% 18.7 % (20.5-51.1); MCHC 30.9 g/dL (33-37); MCV 93.9 FL (81-99); MONO# 1.02 X1000 (0.11-0.59); MONO% 7.8 % (1.7-9.3); MPV 9.3 FL (7.4-10.4); NEUT# 9.11 X1000 (1.4-6.5); NEUT% 69.9 % (42.2-75.2); PLT 399 X1000 (130-400); RBC 3.59 XMIL (4.2-5.4); RDW 13.1 % (11.5-14.5); WBC 13.05 X1000 (4.8-10.8)
[2019-08-28 07:18] LABS: AGAP 10; ALBUMIN 2.7 g/dL (3.5-5.0); BUN 6 mg/dL (8-22); CALCIUM 9.1 mg/dL (8.8-10.2); CHLORIDE 103 mmol/L (98-107); COSMO 279; CREATININE 0.7 mg/dL (0.5-0.9); ESTIMATED GFR > 60; GLUCOSE 93 mg/dL (70-104); PHOSPHORUS 3.8 mg/dL (2.7-4.5); POTASSIUM 3.4 mmol/L (3.5-5.1); SODIUM 141 mmol/L (136-145); TCO2 28 mmol/L (25-35)
[2019-08-28] MEDS: MIRALAX PO SCH ×2 (09:37→20:11)
[2019-08-28] MEDS: COLACE PO SCH ×2 (09:38→20:11)
[2019-08-28] MEDS: LOVENOX SUBQ SCH (09:38)
[2019-08-28] MEDS ORDERED: ZYVOX PO SCH (11:15)
[2019-08-28] MEDS ORDERED: VANCOMYCIN IV PER PHARMACY MISC SCH (11:15)
[2019-08-28] MEDS: OXY IR PO PRN ×3 (11:41→22:55)
[2019-08-28 11:56] LABS: HEPATITIS PROFILE ACUTE SEE COMMENTS
[2019-08-28] MEDS ORDERED: VANCOMYCIN 2,000 MG in NS 500 ML IV ONE (13:00)
--- NOTE | 2019-08-28 14:04 | INFECTIOUS DISEASE PROGRESS NO ---
DATE: 08/28/2019 PRESENT ILLNESS: Ms. Diaz is being treated for bilateral pyelonephritis with leukocytosis and low-grade fever. There is also the start of an oral candidiasis. MEDICATIONS: She is receiving cefepime 2 g IV every 12 hours. PHYSICAL EXAMINATION: Vital signs: Temperature is 98.6, pulse rate 73, respiratory rate 19, blood pressure 126/75, O2 saturation is 98% on room air. General: This is a somewhat ill-appearing middle-aged female. She is lying in the bed currently in no acute distress. HEENT: Atraumatic, normocephalic. Oral mucous membranes are pink and moist. She does have a mild white coating on her tongue and complains of a sore throat. Neck: Supple. Trachea is midline. Respiratory: Lung sounds are clear to auscultation bilaterally. No work of breathing is noted. Cardiovascular: Heart rate and rhythm are regular. Normal sinus rhythm on the monitor. Abdomen: Soft, round, and tender to palpation to the right upper quadrant as well she is also having right flank pain. Neurologic: She is awake, alert, oriented, and able to ambulate independently. Integumentary: Skin is warm and dry. LABORATORY AND X-RAY: Today, her white count is 13.05, hemoglobin 10.4, platelet count 399,000. Creatinine is 0.7, estimated GFR is greater than 60. Blood cultures have shown no growth after 48 hours. Urine culture shows mixed josefina. Her urinalysis shows 1+ bacteria and white blood cells too numerous to count. No imaging reports today. ASSESSMENT AND PLAN: Ms. Diaz is being treated for bilateral pyelonephritis. Today, she has had an increase in her white blood cell count. We will put her back on the vancomycin IV and continue cefepime as ordered. The plan at this point is to keep her over the weekend and possibly do a biopsy of her thyroid on Saturday. Since her urine culture showed mixed josefina, we will try to get another culture to see if anything grows. She has a sore throat throat, with a coating to her tongue, so we will start nystatin swish and swallow. These plans have been discussed with and recommended by Dr. Avendano. COMORBIDITIES: Include previous urinary tract infection and presence of thyroid nodule. Dictated by RYLEY Hamilton for Dave Avendano MD cc: Dave Avendano MD [facility]
[2019-08-28] MEDS: MYCOSTATIN SUSP PO SCH ×2 (15:18→20:11)
[2019-08-28] MEDS ORDERED: KLOR-CON PO ONE (16:24)
--- NOTE | 2019-08-28 17:01 | PROGRESS NOTE ---
DATE: 08/28/2019 SUBJECTIVE: The patient is resting comfortably in bed. She had a low-grade temperature this morning and white count is slightly elevated again today. OBJECTIVE: Vital Signs: Temperature 98.3 degrees, blood pressure 106/64, heart rate 81, respirations 19, O2 saturation 99% on room air. General: This is a elderly female lying in bed in no acute distress. Heart: S1, S2 normal. Regular rate and rhythm. Lungs: Clear to auscultation bilaterally. Abdomen: Positive bowel sounds. Soft, nontender, nondistended. Extremities: No edema, no cyanosis. Neuro: The patient is alert and oriented x4. ASSESSMENT AND PLAN: 1. Sepsis secondary to bilateral pyelonephritis. Continue with antibiotic therapy. 2. Bilateral pyelonephritis. The patient's white count is increased today and she has a low- grade temperature. Dr. Avendano has adjusted the antibiotic therapy. 3. Thyroid nodule. The case was discussed with Dr. Ross who recommended ultrasound followup versus doing a thyroid biopsy at this time. The patient has an appointment with Dr. Mj Diaz at the [facility] at [facility] on 11/23/2019 at 2:30 p.m. 4. Cholelithiasis. The patient will follow up with Dr. Galvan as outpatient to discuss possible cholecystectomy once her infection has cleared. 5. Constipation improved. Continue with laxative therapy. 6. Deep vein thrombosis prophylaxis. Continue on Lovenox . 7. Hypothyroidism. Continue on Synthroid. 8. Disposition. The patient will likely remain in the hospital this weekend as per Dr. Avendano. Hopefully she will be able to be discharged home on Saturday. cc: Yuni Ledesma MD [facility]
[2019-08-28 19:51] LABS: URINE SOURCE CLEAN CATCH
[2019-08-28 20:01] LABS: BILIRUBIN URINE NEGATIVE (NEGATIVE); BLOOD URINE NEGATIVE (NEGATIVE); COLOR YELLOW; GLUCOSE URINE NEGATIVE (NEGATIVE); KETONE URINE NEGATIVE (NEGATIVE); LEUKOCYTES URINE NEGATIVE (NEGATIVE); NITRITE URINE NEGATIVE (NEGATIVE); PROTEIN URINE NEGATIVE (NEGATIVE); SP GRAVITY URINE 1.012; TURBIDITY URINE CLEAR (CLEAR); UROBILINOGEN URINE NORMAL (NORMAL)
[2019-08-28 20:02] LABS: UR EPITHELIAL CELLS <10 /HPF (<10); URINE BACTERIA NEGATIVE /HPF; URINE RBC <10 /HPF (<10); URINE WBC <10 /HPF (<10)
[2019-08-28] MEDS: LIDODERM TOP PRN (23:08)
[2019-08-29] MEDS: OXY IR PO PRN ×3 (06:27→19:33)
[2019-08-29] MEDS: VANCOMYCIN 1,500 MG in NS 250 ML IV SCH (06:27)
[2019-08-29] MEDS: SYNTHROID PO SCH (06:27)
[2019-08-29 07:47] LABS: BASO# 0.05 X1000 (0.0-0.2); BASO% 0.4 % (0.0-0.8); EOS# 0.34 X1000 (0.0-0.7); EOS% 2.8 % (0.0-10.0); HEMATOCRIT 31.2 % (37.0-47.0); HEMOGLOBIN 9.7 g/dL (12.0-16.0); IMM GRAN# 0.13 X1000 (0.0-0.04); IMM GRAN% 1.1 % (0.0-0.5); LYMPH# 2.76 X1000 (1.2-3.4); LYMPH% 22.6 % (20.5-51.1); MCH 29.4 PG (27-31); MCHC 31.1 g/dL (33-37); MCV 94.5 FL (81-99); MONO# 1.21 X1000 (0.11-0.59); MONO% 9.9 % (1.7-9.3); MPV 9.5 FL (7.4-10.4); NEUT# 7.71 X1000 (1.4-6.5); NEUT% 63.2 % (42.2-75.2); PLT 402 X1000 (130-400)
[2019-08-29 08:01] LABS: AGAP 10; ALBUMIN 2.8 g/dL (3.5-5.0); BUN 7 mg/dL (8-22); CALCIUM 8.9 mg/dL (8.8-10.2); CHLORIDE 103 mmol/L (98-107); COSMO 282; CREATININE 0.6 mg/dL (0.5-0.9); ESTIMATED GFR > 60; GLUCOSE 86 mg/dL (70-104); PHOSPHORUS 3.4 mg/dL (2.7-4.5); POTASSIUM 3.9 mmol/L (3.5-5.1); SODIUM 143 mmol/L (136-145); TCO2 30 mmol/L (25-35)
[2019-08-29 08:53] LABS: ANISOCYTOSIS 1+; EOS 2 % (1-10); LYMPHS 23 % (21-51); MONO 9 % (1-9); SEGS 64 % (42-75)
[2019-08-29 08:54] LABS: MICROCYTOSIS 1+
[2019-08-29] MEDS: MIRALAX PO SCH (09:26)
[2019-08-29] MEDS: LOVENOX SUBQ SCH (09:31)
[2019-08-29] MEDS: MYCOSTATIN SUSP PO SCH ×6 (09:31→20:15)
[2019-08-29] MEDS: COLACE PO SCH ×3 (09:31→20:15)
[2019-08-29 12:19] LABS: ALB/GLOB RATIO 0.9; DIRECT BILIRUBIN 0.1 mg/dL (0.00-0.20); TOTAL BILIRUBIN 0.18 mg/dL (0.20-1.00); TOTAL PROTEIN 6.5 g/dL (6.3-8.3)
[2019-08-29] MEDS: MAXIPIME 2 GM in NS 100 ML IV SCH (12:34)
[2019-08-29] MEDS: LACTULOSE PO SCH ×3 (12:35→20:15)
[2019-08-29] MEDS: DULCOLAX PR SCH ×3 (12:35→20:15)
--- NOTE | 2019-08-29 13:19 | PROGRESS NOTE ---
DATE: 08/29/2019 INTERVAL HISTORY: No acute events overnight. She is feeling a little lightheaded occasionally, but she is feeling much better than before. Her family is at bedside. I had an extensive discussion with them about her hypothyroidism, thyroid nodule and need for eventual follow-up ultrasound versus biopsy. I also explained to them that considering her current sepsis, we may withhold biopsy at the moment while we take care of the infection and they are in agreement. CURRENT VITALS: Temperature of 98.4 degrees, pulse 69, respiratory rate 18, blood pressure 110/70, saturating 95% on room air. PHYSICAL EXAMINATION: General: Does not appear in acute distress. Oral cavity: Moist. Lungs: Air entry bilaterally equal. No wheeze, rhonchi, crackles. Heart: S1, S2 normal. No murmur, rub or gallop. Abdomen: Soft. Persistent right upper quadrant tenderness with guarding on the right upper quadrant, right flank region. Active bowel sounds. Otherwise, soft nontender abdomen. Extremities: No lower extremity edema. LABS: Suggestive of improving leukocytosis, normocytic anemia, mild thrombocytosis, normal electrolytes. MICROBIOLOGY: No positive microbiological data. A repeat urine culture did not have any growth. ASSESSMENT AND PLAN: 1. Sepsis secondary to bilateral pyelonephritis with persistent right upper quadrant, right flank pain. Her antibiotics were recently changed back to intravenous vancomycin on August 28. She continues to be on intravenous cefepime. Repeat urine culture is unremarkable. I will allow vancomycin to act for a few hours and will repeat CT scan of abdomen, pelvis with intravenous contrast tomorrow morning to evaluate for perinephric abscess and follow up of her pyelonephritis since she has persistent right upper quadrant pain and mile leucocytosis. 2. Cholecystolithiasis with abnormal liver function tests. Followup repeat liver function test. Surgical team had recommended outpatient follow-up. Currently, she does not have any evidence of cholecystitis on ultrasound. 3. Hypothyroidism with thyroid nodule. Continue levothyroxine supplement. I advised her to get repeat thyroid stimulating hormone 4 weeks after discharge considering she has septic picture on presentation. After discussion of the benefit versus risk with the patient and family, I decided not to perform an invasive biopsy, and she could have an outpatient follow-up. 4. Constipation. I will start her on lactulose and bisacodyl suppositories. 5. Deep vein thrombosis prophylaxis on enoxaparin. I encouraged patient to come out of bed and move in the hallway. Plan of care discussed with the patient. All questions have been answered. DISPOSITION: The patient is to remain inside the hospital for IV antibiotics over the weekend and, depending on her course, she would probably be discharged early next week on oral antibiotics as per Infectious Disease recommendations. cc: Elier Kearns MD [facility]
[2019-08-29] MEDS: TYLENOL PO PRN (18:06)
[2019-08-29] MEDS: LIDODERM TOP PRN (19:34)
[2019-08-30] MEDS: VANCOMYCIN 1,500 MG in NS 250 ML IV SCH ×2 (02:55→05:22)
[2019-08-30] MEDS: OXY IR PO PRN ×2 (05:18→13:22)
[2019-08-30] MEDS: MAXIPIME 2 GM in NS 100 ML IV SCH (05:20)
[2019-08-30] MEDS: SYNTHROID PO SCH (06:50)
[2019-08-30 08:02] LABS: AGAP 12; BUN 11 mg/dL (8-22); CALCIUM 9.4 mg/dL (8.8-10.2); CHLORIDE 102 mmol/L (98-107); COSMO 284; CREATININE 0.6 mg/dL (0.5-0.9); ESTIMATED GFR > 60; GLUCOSE 88 mg/dL (70-104); PHOSPHORUS 3.4 mg/dL (2.7-4.5); SODIUM 143 mmol/L (136-145); TCO2 29 mmol/L (25-35)
[2019-08-30] MEDS: MYCOSTATIN SUSP PO SCH ×2 (09:23→13:23)
--- NOTE | 2019-08-30 10:44 | Diag Imaging Result Doc PS360 ---
EXAM: CT ABDOMEN/PELVIS W/O CONTRAST - 08/30/2019 HISTORY: Eval for perinephric abscess/follow up pyelo TECHNIQUE: CT abdomen/pelvis without contrast. No contrast administered per request the referring provider. COMPARISON: 08/23/2019 CT abdomen/pelvis with intravenous contrast FINDINGS: There has been development of small bilateral pleural effusions. Evaluation of the kidneys is somewhat limited without administered intravenous contrast. Mild right hydronephrosis. There is no renal stone identified. There is no perinephric abscess identified. There is mild presacral edema. There is no evidence of bowel obstruction. There is no free air. There is retained fecal debris in the colon suggesting constipation. There are no acute abnormalities of the liver, spleen, adrenal glands, or pancreas identified. There are no calcified gallstones or pericholecystic inflammation identified. IMPRESSION: Mild right hydronephrosis. No evidence of perinephric abscess. This exam was performed using automated exposure control, adjustment of mA or kV according to patient size, and/or use of iterative reconstruction technique. Electronically signed by Forrest Hudson 08/30/2019 10:42 AM
[2019-08-30 11:14] VITALS: BP 114/80
[2019-08-30] MEDS: LACTULOSE PO SCH (13:38)
[2019-08-30] MEDS: DULCOLAX PR SCH (13:38)
[2019-08-30] MEDS: COLACE PO SCH (13:39)
[2019-08-30 13:52] LABS: BASO# 0.07 X1000 (0.0-0.2); BASO% 0.5 % (0.0-0.8); EOS# 0.44 X1000 (0.0-0.7); EOS% 3.2 % (0.0-10.0); HEMATOCRIT 33.6 % (37.0-47.0); HEMOGLOBIN 10.5 g/dL (12.0-16.0); IMM GRAN% 2.2 % (0.0-0.5); LYMPH# 2.72 X1000 (1.2-3.4); LYMPH% 19.5 % (20.5-51.1); MCH 29.9 PG (27-31); MCHC 31.3 g/dL (33-37); MCV 95.7 FL (81-99); MONO# 1.02 X1000 (0.11-0.59); MONO% 7.3 % (1.7-9.3); MPV 9.9 FL (7.4-10.4); NEUT# 9.39 X1000 (1.4-6.5); NEUT% 67.3 % (42.2-75.2); PLT 433 X1000 (130-400); RBC 3.51 XMIL (4.2-5.4); RDW 13.2 % (11.5-14.5); WBC 13.94 X1000 (4.8-10.8)
[2019-08-30 14:18] LABS: EOS 6 % (1-10); LARGE PLATELETS OCCASIONAL; LYMPHS 15 % (21-51); MONO 7 % (1-9); SEGS 67 % (42-75)
[2019-08-30] MEDS: LOVENOX SUBQ SCH (14:40)
--- NOTE | 2019-08-30 15:02 | INFECTIOUS DISEASE PROGRESS NO ---
DATE: 08/30/2019 The patient has pyelonephritis. There is a questionable slight dilatation of the ureter. She is doing much better. Plan today is to send her home on 1 week's worth of Levaquin 500 mg daily. Some of the side effects of the antibiotic, including rash, diarrhea, seizures, and tendon rupture have been explained the patient. She agrees to treatment. The patient, as mentioned above, will be coming back to my office in 1 week. At which time, she will be examined and most likely go ahead and have a renal ultrasound done to see if the dilatation of the ureter has cleared. cc: Dave Avendano MD
--- NOTE | 2019-08-30 18:30 | DISCHARGE SUMMARY ---
ADMISSION DATE: 08/23/2019 DISCHARGE DATE: 08/30/2019 CONSULTATIONS: 1. Dr. Jamari Galvan with General Surgery. 2. Dr. Dave Avendano with Infectious Disease. PERTINENT PROCEDURES: 1. Abdomen and pelvis CT. Bilateral pyelonephritis, tiny gallstone in the bladder. 2. Abdominal ultrasound. 8.3 mm gallbladder sludge or possibly gallbladder polyp with no wall thickening or pericholecystic fluid but reported a sonographic Sparks sign. 3. Head CT. No evidence of acute intracranial disease. 4. Head and neck ultrasound showed extremely heterogeneous thyroid with a dominant nodule in the left lobe that can be classified as a BI-RADS category 3 nodule. Recommended ultrasound. 5. Follow-up abdomen CT showed mild right hydronephrosis. No evidence of abscess. DISCHARGE DIAGNOSES: 1. Sepsis secondary to bilateral pyelonephritis with persistent right upper quadrant and right flank pain. The patient's antibiotics were per Dr. Avendano. They did do a repeat CT scan of the abdomen that did not show any abscess. It showed a mild right hydronephrosis. She has been on 1 week's worth of p.o. Levaquin and will follow up with Dr. Avendano in 1 week where he will obtain a renal ultrasound at that time. 2. Cholelithiasis with abnormal liver function tests. Surgical team will follow up with the patient on an outpatient basis. No evidence of cholecystitis on ultrasound. 3. Hypothyroidism with a thyroid nodule. Continue levothyroxine supplementation. Patient has been advised to get a repeat TSH in 4 weeks after discharge considering she had a sepsis type picture on presentation and continue outpatient follow-up. 4. Constipation. Continue bowel regimen. HOSPITAL COURSE: Briefly, Ms. Diaz is a 49-year-old female with history of hypothyroidism who came to the ED complaining of right flank pain for several days that radiated to the right upper quadrant that had been present 1 to 2 weeks. She had also reported some dysuria, thought she had a UTI that resolved without further intervention. She does have a history of nephrolithiasis. Imaging workup revealed bilateral pyelonephritis as well as leukocytosis, as well as incidentally noted a gallstone. She was followed by Infectious Disease as well as General Surgery. Incidentally found a thyroid nodule. She has been on IV antibiotics and now tolerating p.o. for 1 week and will follow up with Dr. Dave Avendano in the office after 1 week with a renal ultrasound. She has also been advised to follow up with her primary care provider given her thyroid nodule as she had a sepsis type picture upon presentation and recheck a TSH, as well as follow up for her gallstone with General Surgery on an outpatient basis. She is appropriate for discharge home today. VITAL SIGNS: Temperature is 98.1 degrees, heart rate 75, respirations 20, blood pressure 114/80. O2 is 99% on room air. DISCHARGE DIET: Regular. DISCHARGE MEDICATIONS: 1. Colace 100 mg p.o. b.i.d. 2. Levaquin 750 mg p.o. daily. 3. OxyIR 5 mg p.o. q.4 hours p.r.n. 4. Synthroid 25 mcg p.o. daily. FOLLOWUP: Ms. Diaz is being discharged home on p.o. levofloxacin. She is to follow up with Dr. Dave Avendano in 1 week, her primary care doctor in 4 weeks for repeat TSH, as well as follow up with General Surgery as an outpatient for her gallstone. She can return to the ED or call 911 for any worsening of symptoms. Dictated by RYLEY Castro for Nixon Raman MD Addendum: Patient seen and examined by myself. Agree with RYLEY note. It reflects my assessment and plan. Patient is being discharged in stable condition and will be seen by SAMY Avendano in a week. cc: MD Dave Patricia MD R. Tyler Harney, MD [facility]TD[facility]
== END 2019-08-30 15:30 | disposition home or self-care (01) | DRG 872 ==
LOC: ED 19:27 → 3N 23:49 → SUATTDRO 23:49 → 2N 08-24 17:53 → 3N 08-26 17:45
PROVIDERS: ATTEND Internal Medicine

== ENCOUNTER 2019-10-07 04:57 | Inpatient (IN) ==
[2019-10-07] MEDS ORDERED: NS 1,000 ML IV ONE (05:24)
[2019-10-07] MEDS ORDERED: ZOFRAN IV ONE (05:24)
[2019-10-07] MEDS ORDERED: MORPHINE IV ONE (05:24)
[2019-10-07 06:04] LABS: BASO# 0.04 X1000 (0.0-0.2); BASO% 0.2 % (0.0-0.8); EOS# 0.13 X1000 (0.0-0.7); EOS% 0.7 % (0.0-10.0); HEMATOCRIT 40.2 % (37.0-47.0); HEMOGLOBIN 12.6 g/dL (12.0-16.0); IMM GRAN# 0.04 X1000 (0.0-0.04); IMM GRAN% 0.2 % (0.0-0.5); LYMPH# 0.85 X1000 (1.2-3.4); LYMPH% 4.4 % (20.5-51.1); MCH 29.3 PG (27-31); MCHC 31.3 g/dL (33-37); MCV 93.5 FL (81-99); MONO# 1.41 X1000 (0.11-0.59); MONO% 7.2 % (1.7-9.3); MPV 9.7 FL (7.4-10.4); NEUT# 17.04 X1000 (1.4-6.5); NEUT% 87.3 % (42.2-75.2); PLT 356 X1000 (130-400); RDW 13.7 % (11.5-14.5); WBC 19.51 X1000 (4.8-10.8)
[2019-10-07 06:24] LABS: AGAP 15; ALBUMIN 4.5 g/dL (3.5-5.0); ALKALINE PHOSPHATASE 95 U/L (32-104); BUN 23 mg/dL (8-22); CHLORIDE 102 mmol/L (98-107); COSMO 288; CREATININE 0.7 mg/dL (0.5-0.9); ESTIMATED GFR > 60; GLUCOSE 117 mg/dL (70-104); GOT 28 U/L (10-30); GPT 16 U/L (10-36); LIPASE 18 U/L (13-60); POTASSIUM 5.2 mmol/L (3.5-5.1); SODIUM 142 mmol/L (136-145); TCO2 25 mmol/L (25-35); TOTAL PROTEIN 7.5 g/dL (6.3-8.3)
[2019-10-07 06:57] LABS: URINE SOURCE CLEAN CATCH
[2019-10-07 07:09] LABS: BILIRUBIN URINE NEGATIVE (NEGATIVE); BLOOD URINE NEGATIVE (NEGATIVE); COLOR YELLOW; GLUCOSE URINE NEGATIVE (NEGATIVE); KETONE URINE NEGATIVE (NEGATIVE); LEUKOCYTES URINE MODERATE (NEGATIVE); NITRITE URINE POSITIVE (NEGATIVE); PROTEIN URINE TRACE mg/dL (NEGATIVE); SP GRAVITY URINE 1.019; TURBIDITY URINE CLEAR (CLEAR); UR EPITHELIAL CELLS <10 /HPF (<10); URINE BACTERIA 4+ /HPF; URINE RBC <10 /HPF (<10); URINE WBC TNTC /HPF (<10); UROBILINOGEN URINE NORMAL (NORMAL)
--- NOTE | 2019-10-07 07:25 | PROVIDER DOCUMENTATION ---
HPI-General Adult - General Chief Complaint: Nausea/Vomiting Stated Complaint: N/V Time Seen by Provider: 10/07/19 05:04 Source: patient Allergies/Adverse Reactions: Patient Allergies Allergy/AdvReac Type Severity Reaction Status Date / Time No Known Allergies Allergy Verified 08/23/19 20:23 Home Medications: Home Medication List Medication Instructions Recorded Confirmed Last Taken Type NK [No Home Medications] 10/07/19 10/07/19 Unknown History - History of Present Illness -Gen Adult Nature of Presenting Problems: NV with upper abd pain starting last night. She was admitted last month at for pyelonephritis but was unable to fill her Levaquin Rx. She was also dx with cholelithiasis and told she needed surgery follow up after her UTI cleared up. Review of Systems - Adult - REVIEW OF SYSTEMS - ADULT Constitutional: reports: chills, fatique Eyes: reports: no symptoms reported Ears, Nose, Mouth & Throat: reports: no symptoms reported Cardiovascular: reports: no symptoms reported Respiratory: reports: no symptoms reported Gastrointestinal: reports: see HPI Genitourinary: reports: see HPI Musculoskeletal: reports: no symptoms reported Integumentary: reports: no symptoms reported Neurological: reports: no symptoms reported Psychiatric: reports: no symptoms reported Endocrine: reports: no symptoms reported Hematologic/Lymphatic: reports: no symptoms reported Past History - Adult - PAST MEDICAL HISTORY-ADULT Review of Records: reports: Old Records Reviewed, Nursing Assessment Review, Social history reviewed & non-contributory. Cardiovascular: reports: denies history Respiratory: reports: denies history Gastrointestinal: reports: denies history Obstetrical/Gynecological: reports: endometriosis Genitourinary: reports: denies history Musculoskeletal: reports: denies history Neurological: reports: denies history Psychiatric: reports: denies history Endocrine/Immune: reports: denies history - PRIOR SURGERIES/PROCEDURES Surgical/Procedure History: reports: hysterectomy, tonsillectomy - IMMUNIZATION STATUS Childhood Immunizations: See Nurse Assessment Flu Vaccine: See Nurse Assessment Physical Exam-General - CONSTITUTIONAL General Appearance: alert, mild distress (due to pain.) - EYES Eyes: PERRL/EOMI, pink conjunctivae - HEAD, EARS, NOSE, MOUTH & THROAT HENMT: normocephalic/atraumatic, moist mucous membranes - NECK Neck: non-tender, full range of motion - RESPIRATORY Respiratory: chest non-tender, lungs clear - CARDIOVASCULAR Cardiovascular: normal peripheral pulses, regular rate, rhythm, no edema - GASTROINTESTINAL (ABDOMEN) Abdominal Exam: normal bowel sounds, tenderness (epigastrium and RUQ.) - LYMPHATIC Lymphatic: no adenopathy - MUSCULOSKELETAL Back Exam: normal inspection, no CVA tenderness Extremity: normal range of motion - SKIN Integumentary: normal color, normal turgor - NEUROLOGIC Neurologic: grossly normal. negative: facial droop, motor weakness, sensory deficit - PSYCHIATRIC Psych/Mental Status: normal mood/affect Progress - PLAN OF CARE/RESULTS Progress/Plan/Lab Results: Vital Signs - 8 hr 10/07/19 04:58 10/07/19 06:54 Temperature 98.0 F Pulse Rate 81 64 Respiratory Rate 20 16 Blood Pressure 127/90 128/78 O2 Sat by Pulse Oximetry 96 95 Laboratory Results - last 24 hr 10/07/19 10/07/19 10/07/19 05:18 05:18 06:27 WBC 19.51 H RBC 4.30 Hgb 12.6 Hct 40.2 MCV 93.5 MCH 29.3 MCHC 31.3 L RDW Std Deviation 13.7 Plt Count 356 MPV 9.7 Immature Gran % (Auto) 0.2 Neut % (Auto) 87.3 H Lymph % (Auto) 4.4 L [place] % (Auto) 7.2 Eos % (Auto) 0.7 Baso % (Auto) 0.2 Immature Gran # (Auto) 0.04 Neut # (Auto) 17.04 H Lymph # (Auto) 0.85 L [place] # (Auto) 1.41 H Eos # (Auto) 0.13 Baso # (Auto) 0.04 Sodium 142 Potassium 5.2 H Chloride 102 Carbon Dioxide 25 Anion Gap 15 BUN 23 H Creatinine 0.7 Estimated GFR/1.73 m2 > 60 BUN/Creatinine Ratio 33 Glucose 117 H Calculated Osmolality 288 Calcium 10.0 Total Bilirubin 0.20 AST 28 ALT 16 Alkaline Phosphatase 95 Total Protein 7.5 Albumin 4.5 Globulin 3.0 Albumin/Globulin Ratio 2.0 Lipase 18 Plasma Lactate 1.9 Urine Source Urine Color Urine Turbidity Urine pH Ur Specific [place] Urine Protein Ur Glucose (Stick) Ur Ketones (Stick) Urine Blood Urine Nitrite Urine Bilirubin Urobilinogen Dipstick Urine Leukocytes Urine WBC (Auto) Urine RBC (Auto) U Epithel Cells (Auto) Urine Bacteria (Auto) 10/07/19 06:46 WBC RBC Hgb Hct MCV MCH MCHC RDW Std Deviation Plt Count MPV Immature Gran % (Auto) Neut % (Auto) Lymph % (Auto) [place] % (Auto) Eos % (Auto) Baso % (Auto) Immature Gran # (Auto) Neut # (Auto) Lymph # (Auto) [place] # (Auto) Eos # (Auto) Baso # (Auto) Sodium Potassium Chloride Carbon Dioxide Anion Gap BUN Creatinine Estimated GFR/1.73 m2 BUN/Creatinine Ratio Glucose Calculated Osmolality Calcium Total Bilirubin AST ALT Alkaline Phosphatase Total Protein Albumin Globulin Albumin/Globulin Ratio Lipase Plasma Lactate Urine Source CLEAN CATCH Urine Color YELLOW Urine Turbidity CLEAR Urine pH 8.0 Ur Specific [place] 1.019 Urine Protein TRACE A Ur Glucose (Stick) NEGATIVE Ur Ketones (Stick) NEGATIVE Urine Blood NEGATIVE Urine Nitrite POSITIVE A Urine Bilirubin NEGATIVE Urobilinogen Dipstick NORMAL Urine Leukocytes MODERATE A Urine WBC (Auto) TNTC A Urine RBC (Auto) <10 U Epithel Cells (Auto) <10 Urine Bacteria (Auto) 4+ Orders Category Date Time Status BLOOD CULTURE [BLDCUL] Stat Lab 10/07/19 06:27 Received CBC WITH ELECTRONIC DIFF [HEME] Stat Lab 10/07/19 05:18 Completed COMPREHENSIVE METABOLIC PANEL [CHEM] Stat Lab 10/07/19 05:18 Completed LACTATE, PLASMA [CHEM] Stat Lab 10/07/19 06:27 Completed LIPASE [CHEM] Stat Lab 10/07/19 05:18 Completed UA NIMS W/REFLEX CULT [URINALYSIS] Stat Lab 10/07/19 06:46 Completed 0.9% Sodium Chloride Inj [Ns] 1,000 ml Med 10/07/19 05:24 Discontinued IV 999 mls/hr Morphine Med 10/07/19 05:24 Discontinued 4 mg IV NOW ONE Ondansetron [Zofran] Med 10/07/19 05:24 Discontinued 4 mg IV NOW ONE Some labs still pending at the end of my shift. Dr Gay assumed care of the pt at 0700 to re-evaluate and determine dispo. Result Diagrams: 10/07/19 05:18 10/07/19 05:18 - REASSESSMENT Reassessment #1 Time Reassessed: 09:33 (Assumed care @ S/O. Seen, examind. Has mild-mon tender to epigastrum, Bilat CVA) - CONSULTS/PCP/HOSPITALIST Notification #1 *Consult/PCP/Hospitalist*: Aaron Time Discussed: 09:36 Consult Disposition: Will see in ED, Admit - CHANGE OF SHIFT REPORT (ED Provider) 1 Report Given and Care Transferred to:: Dr Gay Time of Transfer: 07:00 Items Pending: Labs, Other (re-evaluation.) Departure - Departure Date of Disposition Decision: 10/07/19 Time of Disposition Decision: 09:36 DIAGNOSIS: Pyelonephritis Disposition: ADMITTED INPATIENT 09 Certified Medical Emergency: Emergent Condition: Stable - Critical Care Note This patient required my direct & personal management of CC.: No Attestation - Physician/ LAKESHIA Attestation Patient care was provided by Advanced Practice Provider:: No The physician spent face to face time with patient:: Yes Advanced Practice Provider documentation review:: Supervising physician onsite and consulted in the evaluation and care of this patient. The physician did have a face to face encounter with the patient.
[2019-10-07] MEDS ORDERED: ROCEPHIN 1 GM in NS 50 ML IV ONE (07:26)
[2019-10-07] MEDS ORDERED: REGLAN IV ONE (09:43)
[2019-10-07] MEDS ORDERED: TYLENOL PO PRN (10:41)
[2019-10-07] MEDS ORDERED: ZOFRAN IV PRN (10:41)
--- NOTE | 2019-10-07 11:19 | HISTORY AND PHYSICAL ---
CHIEF COMPLAINT: Nausea and vomiting. HISTORY OF PRESENT ILLNESS: Patient is a 49-year-old female who presented to [facility] emergency department noting that she has been having nausea, vomiting, abdominal pain for the last few days. States she was recently at [facility] for pyelonephritis but notes that she was unable to fill her Levaquin. When asked, she states they did not send her home with it. Unfortunately it appears as though she may not have called any pharmacy to actually find out the cost, she just assumed it was too expensive. She has had some dysuria. Denies any fevers or chills. ALLERGIES: No known drug allergies. MEDICATIONS: No current medications. REVIEW OF SYSTEMS: As noted above, she has had mild fevers, chills. Denies any fever or chill prior to yesterday. Denies any hematemesis, melena, hematochezia, dysuria prior to the past couple of days. Denies hematuria. Denies hemoptysis. Denies diarrhea, constipation, melena. Denies any skin rashes, weight loss, or weight gain. Denies chest pain, palpitations, headaches. PAST MEDICAL HISTORY: She denies any chronic medical illnesses other than history of endometriosis. SURGICAL HISTORY: She has had a hysterectomy and tonsillectomy. SOCIAL HISTORY: She does smoke. Denies illicit substance use. PHYSICAL EXAMINATION: VITAL SIGNS: Reviewed. Temperature 98 degrees, pulse 81, respiratory rate 20, BP 127/90, saturating 96% on room air. GENERAL: Patient is awake. Currently, she is in no respiratory distress. HEENT: Normocephalic. NECK: Supple. CARDIOVASCULAR: Regular rate. CHEST: Clear and unlabored. ABDOMEN: Soft. Diffusely but minimally tender in the epigastric and right upper quadrant area. Denies any CVA tenderness currently. EXTREMITIES: Moves all extremities. No edema. NEUROLOGIC: No focal changes. SKIN: Warm and dry. No rashes. LABORATORY DATA: WBCs 19, hemoglobin and hematocrit 12 and 40. Potassium 5.2, glucose 117, lactate 1.9. Urine positive for nitrites, leukocytes, and gac-[id number]-bb-count white cells. ASSESSMENT: 1. Pyelonephritis. 2. Leukocytosis. 3. Hyperkalemia. 4. Mild hyperglycemia. PLAN: We are going to admit her to the hospital, IV antibiotics, IV fluids, and we will follow. cc: Abner Walker MD
[2019-10-07] MEDS: ZOSYN 3.375 GM in NS 50 ML IV SCH ×3 (11:26→22:15)
[2019-10-07] MEDS: NS 1,000 ML IV SCH (11:26)
[2019-10-08] MEDS: ZOSYN 3.375 GM in NS 50 ML IV SCH ×5 (00:45→22:42)
[2019-10-08] MEDS: NS 1,000 ML IV SCH (00:47)
[2019-10-08 06:46] LABS: BASO# 0.01 X1000 (0.0-0.2); BASO% 0.2 % (0.0-0.8); EOS# 0.13 X1000 (0.0-0.7); HEMATOCRIT 33.7 % (37.0-47.0); HEMOGLOBIN 10.5 g/dL (12.0-16.0); IMM GRAN# 0.02 X1000 (0.0-0.04); IMM GRAN% 0.3 % (0.0-0.5); LYMPH# 1.48 X1000 (1.2-3.4); LYMPH% 22.4 % (20.5-51.1); MCH 29.7 PG (27-31); MCHC 31.2 g/dL (33-37); MCV 95.5 FL (81-99); MONO# 0.65 X1000 (0.11-0.59); MONO% 9.8 % (1.7-9.3); MPV 9.4 FL (7.4-10.4); NEUT# 4.31 X1000 (1.4-6.5); NEUT% 65.3 % (42.2-75.2); PLT 258 X1000 (130-400); RBC 3.53 XMIL (4.2-5.4); RDW 13.9 % (11.5-14.5)
[2019-10-08 07:18] LABS: AGAP 10; ALBUMIN 3.3 g/dL (3.5-5.0); ALKALINE PHOSPHATASE 77 U/L (32-104); BUN 14 mg/dL (8-22); CALCIUM 8.4 mg/dL (8.8-10.2); CHLORIDE 107 mmol/L (98-107); COSMO 282; CREATININE 0.6 mg/dL (0.5-0.9); ESTIMATED GFR > 60; GLUCOSE 112 mg/dL (70-104); GOT 38 U/L (10-30); GPT 27 U/L (10-36); POTASSIUM 3.3 mmol/L (3.5-5.1); SODIUM 141 mmol/L (136-145); TCO2 24 mmol/L (25-35); TOTAL PROTEIN 5.8 g/dL (6.3-8.3)
[2019-10-08] MEDS ORDERED: KLOR-CON PO ONE (09:48)
[2019-10-08] MEDS ORDERED: NS 1,000 ML IV SCH (10:58)
--- NOTE | 2019-10-08 16:40 | PROGRESS NOTE ---
DATE: 10/08/2019 SUBJECTIVE: The patient notes that her nausea is improved. Overall she is feeling better. Denies any fevers or chills. OBJECTIVE: Vital signs: Temperature 98.5, pulse 68, respiratory rate 18, BP 109/60. General: Patient is awake, alert, currently in no respiratory distress. She is pleasant. HEENT: Normocephalic. Neck: Supple. Cardiovascular: Regular rate. No murmurs. Chest: Clear. Abdomen: Soft, nondistended. Extremities: Moves all extremities. ASSESSMENT: 1. Pyelonephritis, improving. 2. Leukocytosis, improved. White count has dropped from 19 down to 6. 3. Hypokalemia, will replace. 4. Mild chronic anemia. PLAN: We will continue patient in the hospital. Continue antibiotics, pain control. We will stop her IV fluids today, discontinue her telemetry, and we will follow. Hopefully, she can discharge home over the next 1 or 2 days. cc: Abner Walker MD
[2019-10-09] MEDS: ZOSYN 3.375 GM in NS 50 ML IV SCH ×2 (04:13→10:24)
[2019-10-09 05:07] VITALS: BP 118/66
--- NOTE | 2019-10-09 15:11 | DISCHARGE SUMMARY ---
ADMISSION DATE: 10/07/2019 DISCHARGE DATE: 10/09/2019 PRIMARY CARE PROVIDER: None PERTINENT PROCEDURES: None. DISCHARGE DIAGNOSES: 1. Pyelonephritis, improving. 2. Leukocytosis, resolved. 3. Hyperkalemia, resolved. 4. Hypokalemia. Patient received supplementation. 5. Mild chronic anemia. Hemoglobin and hematocrit stable. 6. Mild hyperglycemia HOSPITAL COURSE: Briefly, Ms. Diaz is a 49-year-old female who carries a past medical history of endometriosis, who had been treated back in late August for pyelonephritis, but noted that she was not able to get her Levaquin filled at the time of discharge. She was complaining of some dysuria, but denied fever or chills. Her white count was 19. Her urine was positive for nitrites, leukocytes and too numerous to count WBCs. She was admitted for pyelonephritis and started on IV antibiotics, IV fluids. She has had a uneventful hospital course. Her white count is back to normal and she will be discharged home with a written prescription with p.o. antibiotics. VITAL SIGNS: At time of her discharge, temperature is 98.4 degrees, heart rate 67, respirations 15, blood pressure 118/66, O2 is 100% on room air. DISCHARGE DIET: Regular. DISCHARGE MEDICATIONS: Omnicef 300 mg p.o. b.i.d. for 10 capsules FOLLOWUP: Ms. Diaz is being discharged back home with self care. She is to take all medications as prescribed. She is to continue hydrating herself and to return to the ED or call 911 for any worsening of symptoms. Dictated by RYLEY Castro for Abner Walker MD cc: Abner Walker MD [facility]OSPITALMarta
--- NOTE | 2019-10-09 17:51 | DISCHARGE SUMMARY ---
ADMISSION DATE: 10/07/2019 DISCHARGE DATE: 10/09/2019 DISCHARGE DIAGNOSES: 1. Pyelonephritis, resolved. 2. Nausea and vomiting, resolved. 3. Right flank pain, resolved. 4. Leukocytosis, resolved. 5. Hypokalemia. 6. Anemia of chronic disease. CONSULTATIONS: None. PROCEDURES: None. BRIEF HOSPITAL COURSE: The patient is a 49-year-old female who presented to the hospital with nausea, vomiting, and flank pain. She had a leukocytosis with a white count of 19. Her culture of her urine thankfully was negative. She was placed on antibiotics, which she tolerated very well. We have changed this over to p.o. antibiotics. She continues to improve, and therefore we will discharge her home. DISPOSITION: Patient will be discharged home. She is on no current home medications. We will continue Omnicef for the next 5 days. She will follow up outpatient with treatment facility of choice. Discussed if she worsens or symptoms return, to come back to the ER. We did discuss with her the perils of smoking and reasons and ways to stop. Greater than 30 minutes was spent in total care. cc: Abner Walker MD
--- NOTE | 2019-10-12 04:27 | DISCHARGE SUMMARY ---
ADMISSION DATE: 10/07/2019 DISCHARGE DATE: 10/09/2019 DISCHARGE ADDENDUM: Patient was seen and examined by myself. Full note was dictated and discussed with nurse practitioner. On discharge, patient is awake she is in no distress. She feels much better. Nausea, vomiting, abdominal pain have resolved. We are going to discharge her home on antibiotics. Please see full note. cc: Abner Walker MD
== END 2019-10-09 11:50 | disposition home or self-care (01) | DRG 690 ==
LOC: P.ED 04:58 → P.MEDSURG 10:29
PROVIDERS: ATTEND Family Medicine